=== PATIENT | male | born 1965 | race Caucasian/White ===

== ENCOUNTER 2020-07-05 15:22 | Inpatient (IN) | payer BC ==
[~2020-07-05] VITALS: Ht 175.3 cm; Wt 113.4 kg
[2020-07-05 16:56] LABS: HEMOGLOBIN 14.8 gm/dl (14.0-17.5); RED BLOOD COUNT 4.88 M/UL (4.20-5.50); WHITE BLOOD COUNT 11.8 K/UL (4.5-11.0)
[2020-07-05 17:54] LABS: BUN/CREATININE RATIO 22 (0-10)
[2020-07-05] MEDS ORDERED: VENTOLIN HFA 66.7 GM INH (19:45)
[2020-07-05] MEDS ORDERED: MUCUS RELIEF400 MG PO (22:17)
[2020-07-06 04:18] LABS: HEMOGLOBIN 13.7 gm/dl (14.0-17.5)
[2020-07-06 04:32] LABS: RED BLOOD COUNT 4.35 M/UL (4.20-5.50)
[2020-07-06 04:53] LABS: BUN/CREATININE RATIO 22 (0-10)
[2020-07-07 06:51] LABS: HEMOGLOBIN 13.2 gm/dl (14.0-17.5); WHITE BLOOD COUNT 7.8 K/UL (4.5-11.0)
[2020-07-07 07:03] LABS: RED BLOOD COUNT 3.82 M/UL (4.20-5.50)
[2020-07-07 07:13] LABS: BUN/CREATININE RATIO 26 (0-10)
[2020-07-08 03:54] LABS: HEMOGLOBIN 12.8 gm/dl (14.0-17.5); RED BLOOD COUNT 4.04 M/UL (4.20-5.50)
[2020-07-08 03:55] LABS: WHITE BLOOD COUNT 13.4 K/UL (4.5-11.0)
[2020-07-08 04:19] LABS: BUN/CREATININE RATIO 24 (0-10)
[2020-07-09 06:30] LABS: HEMOGLOBIN 13.2 gm/dl (14.0-17.5); RED BLOOD COUNT 4.24 M/UL (4.20-5.50); WHITE BLOOD COUNT 13.3 K/UL (4.5-11.0)
[2020-07-09 06:55] LABS: BUN/CREATININE RATIO 30 (0-10)
[2020-07-09] MEDS ORDERED: BENZONATATE100 MG PO (10:19)
[2020-07-09] MEDS ORDERED: DOXYCYCLINE HY100 M2 PO (10:19)
[2020-07-09] MEDS ORDERED: BUDESONIDE0.5 MG/2 M NEB (10:19)
[2020-07-09] MEDS ORDERED: AMLODIPINE BESYL5 MG PO (10:19)
[2020-07-09] MEDS ORDERED: DEXAMETHASONE6 MG PO (10:19)
[2020-07-09] MEDS ORDERED: VITAMIN C1000 MG PO (10:19)
[2020-07-09] MEDS ORDERED: IPRAT-ALBUT 0.5-3 ML NEB (10:19)
== END 2020-07-09 13:01 | disposition home or self-care (01) | DRG 177 ==
LOC: ER1 15:22 → MED SURG 4 21:55 → CDU 21:55 → MED SURG 4 23:23
PROVIDERS: Emergency Medicine; Internal Medicine; ADMIT Internal Medicine
PROC: 8E0ZXY6 Isolation (ICD-10-PCS; 2020-07-05)
PROC: 3E02340 Introduction of Influenza Vaccine into Muscle, Percutaneous Approach (ICD-10-PCS; 2020-07-05)
PROC: XW033F6 Introduction of Bamlanivimab Monoclonal Antibody into Peripheral Vein, Percutaneous Approach, New Technology Group 6 (ICD-10-PCS; 2020-07-05)
PROC: XW033E5 Introduction of Remdesivir Anti-infective into Peripheral Vein, Percutaneous Approach, New Technology Group 5 (ICD-10-PCS; principal; 2020-07-06)
DX: U07.1 COVID-19 (principal); J96.01 Acute respiratory failure with hypoxia; J12.82 Pneumonia due to coronavirus disease 2019; I10 Essential (primary) hypertension; J64 Unspecified pneumoconiosis; Z86.16 Personal history of COVID-19; Z82.0 Family history of epilepsy and other diseases of the nervous system; Z82.49 Family history of ischemic heart disease and other diseases of the circulatory system; Z23 Encounter for immunization
CPT/HCPCS: 36415; 36600; 71045; 80053; 82550; 82553; 82728; 82803; 83615; 83874; 84484; 85025; 85379; 86140; 87040; 93005; 94640; 94664; 94760; 96372; 99285; J1100; J1650; J7030; M0239; Q9967

== ENCOUNTER → 2020-08-13 | Outpatient (CLI) | payer BC ==
[~2020-08-13] MED LIST: AMLODIPINE BESYL5 MG PO; BENZONATATE100 MG PO; BUDESONIDE0.5 MG/2 M NEB; DEXAMETHASONE6 MG PO; DOXYCYCLINE HY100 M2 PO; IPRAT-ALBUT 0.5-3 ML NEB; MUCUS RELIEF400 MG PO; VENTOLIN HFA 66.7 GM INH; VITAMIN C1000 MG PO
== END ==
LOC: HEART 5 11:04
DX: J30.9 Allergic rhinitis, unspecified (principal); R05 Cough; E11.65 Type 2 diabetes mellitus with hyperglycemia; K21.9 Gastro-esophageal reflux disease without esophagitis; Z00.00 Encounter for general adult medical examination without abnormal findings; Z86.16 Personal history of COVID-19; R94.2 Abnormal results of pulmonary function studies
CPT/HCPCS: 71046; 94060; 95012

== ENCOUNTER → 2020-09-21 | Outpatient (CLI) | payer BC | LOC: EXRD 13:00 | DX: E04.1 Nontoxic single thyroid nodule (principal) | CPT/HCPCS: 76536 ==